=== PATIENT | male | born 1980 | race Caucasian/White ===

== ENCOUNTER 2021-09-18 06:17 | Emergency (ER) | payer OTHER ==
[~2021-09-18] VITALS: Ht 182.9 cm; Wt 104.3 kg
--- NOTE | 2021-09-18 06:31 | NUR ---
[facility]. L LOWER CHEST PAIN X TODAY AFTER ARREST FROM [facility] NON RADIAITING 09/30. PT A/OX4. TOLERATING R/A WELL; RESP EVEN AND NONLABORED. CONNECTED PT TO POX AND MONITOR.
--- NOTE | 2021-09-18 07:00 | NUR ---
TOE PULLER AT PT'S BEDSIDE
--- NOTE | 2021-09-18 07:01 | NUR ---
Anca wilson in [facility] - 09/18/21 at 0712 by ARTHUR REPAIR DEPARTMENT MANAGER AT PT'S BEDSIDE
[2021-09-18 08:28] LABS: BASOPHILS # (AUTO) 0.1 K/uL (0.0-0.2); BASOPHILS % (AUTO) 0.7 % (0.0-2.0); EOSINOPHILS % (AUTO) 0.5 % (0.0-6.0); HEMATOCRIT 45 % (39-51); HEMOGLOBIN 14.9 g/dL (13.5-17.5); LYMPHOCYTES # (AUTO) 1.7 K/uL (0.8-4.8); LYMPHOCYTES % (AUTO) 16.7 % (20.0-44.0); MEAN CORPUSCULAR HGB CONC 34 g/dl (31.0-36.0); MEAN CORPUSCULAR VOLUME 80 fL (80-96); MONOCYTES # (AUTO) 0.9 K/uL (0.1-1.30); MONOCYTES % (AUTO) 9.1 % (2.0-12.0); NEUTROPHILS # (AUTO) 7.4 K/uL (1.8-8.9); PLATELET COUNT (AUTO) 221 K/uL (150-450); RED BLOOD CELL COUNT(AUTO) 5.54 MIL/uL (4.5-6.0); WHITE BLOOD COUNT (AUTO) 10.1 K/uL (4.3-11.0)
[2021-09-18 08:38] LABS: CARBON DIOXIDE 28 mmol/L (21-32); CHLORIDE 105 mmol/L (98-107); CREATININE 0.8 mg/dL (0.6-1.3); GLUCOSE 101 mg/dL (74-106); POTASSIUM 3.6 mmol/L (3.5-5.1); SODIUM SERUM 139 mmol/L (136-145); UREA NITROGEN, BLOOD 9 mg/dL (7-18)
--- NOTE | 2021-09-18 11:38 | NUR ---
Patient discharged to [facility] in stable condition. Written and verbal after care instructions given. Patient verbalizes understanding of instruction.
[2021-09-18 11:39] VITALS: BP 118/77
== END 2021-09-18 11:39 ==
LOC: ER 06:24
DX: R07.89 Other chest pain (principal); F17.200 Nicotine dependence, unspecified, uncomplicated
CPT/HCPCS: 36415; 71045-TC; 80048-TC; 84484-TC; 85025-TC